=== PATIENT | female | born 1965 | race Caucasian/White ===

== ENCOUNTER 2016-08-18 20:43 | Inpatient (IN) | payer MEDICAID ==
[~2016-08-18] VITALS: Ht 160 cm; Wt 81.2 kg
[2016-08-18] MEDS ORDERED: DUONEB INH ONE (20:58)
[2016-08-18] MEDS ORDERED: METHYLPRED SOD SUCC 125 MG/2 ML VIAL ONE (21:16)
[2016-08-19] VITALS (7 sets, daily range): BP systolic 123–152; RESP 18–22; TEMP 97.5–98.6; Ht 160 cm; Wt 81.2 kg
[2016-08-19] MEDS: AMITRIPTYLINE 25 MG TAB PO SCH ×2 (00:45→21:16)
[2016-08-19] MEDS: SERTRALINE 100 MG TAB PO SCH ×2 (00:45→21:16)
[2016-08-19] MEDS ORDERED: NEB-ALBUTEROL 2.5 MG/3 ML INH PRN ×2 (00:45→08:45)
[2016-08-19] MEDS ORDERED: SALINE FLUSH 10 ML FLUSH PRN (00:45)
[2016-08-19] MEDS: FAMOTIDINE 20 MG TAB PO SCH ×3 (00:45→21:15)
[2016-08-19] MEDS: SODIUM CHLORIDE 0.9% 1,000 ML IV SCH ×3 (05:54→21:17)
[2016-08-19] MEDS: SODIUM CHLORIDE 0.9% FLUSH BAG 500 ML IV SCH (05:55)
[2016-08-19] MEDS ORDERED: DUONEB INH SCH (07:00)
[2016-08-19] MEDS ORDERED: *PINK BRACELET XX ONE (07:15)
[2016-08-19] MEDS: DUONEB INH SCH ×5 (07:55→22:59)
[2016-08-19] MEDS ORDERED: METHYLPRED SOD SUCC 40 MG VIAL IV SCH (08:00)
[2016-08-19] MEDS: *HOME MEDS KEPT IN PHARMACY XX SCH ×2 (08:00→20:00)
[2016-08-19] MEDS: LEVOFLOXACIN 750 MG/150 ML 150 ML IV SCH (08:25)
[2016-08-19] MEDS: SALINE FLUSH 10 ML FLUSH SCH ×2 (08:28→20:00)
[2016-08-19] MEDS: BUPROPION SR 150 MG TAB PO SCH ×2 (08:29→21:16)
[2016-08-19] MEDS: LEVETIRACETAM 500 MG TAB PO SCH ×2 (08:29→21:16)
[2016-08-19] MEDS: DICLOFENAC 25 MG TAB PO SCH ×3 (08:29→21:16)
[2016-08-19] MEDS: ENOXAPARIN 40 MG/0.4 ML SYR SUBQ SCH (08:30)
[2016-08-19] MEDS: BUSPIRONE HCL 10 MG TAB PO SCH ×3 (08:32→21:16)
[2016-08-19] MEDS ORDERED: MISSING DOSE XX ONE (08:40)
[2016-08-19] MEDS ORDERED: DOCUSATE SOD 100 MG CAP PO PRN (08:50)
[2016-08-19] MEDS: POLYETHYLENE GLYCOL 17 GM PACKET PO SCH (09:57)
[2016-08-19] MEDS: METHYLPRED SOD SUCC 125 MG/2 ML VIAL IV SCH ×2 (09:58→17:13)
[2016-08-19] MEDS: PANTOPRAZOLE 40 MG TAB PO SCH (09:58)
[2016-08-19] MEDS: GUAIFENESIN ER 600 MG TABCR PO SCH ×2 (09:58→21:15)
[2016-08-19] MEDS: BENZONATATE 100 MG CAP PO SCH ×3 (09:58→21:16)
[2016-08-19] MEDS ORDERED: ACETAMINOPHEN 325 MG TAB PO PRN (13:05)
[2016-08-19] MEDS ORDERED: NICOTINE 14 MG/24 HR TDSY TRANSDERM PRN (16:25)
[2016-08-19] MEDS: NEB-BROVANA 15 MCG/2 ML INH SCH (18:35)
[2016-08-19] MEDS: NEB-BUDESONIDE 0.5 MG INH SCH (18:35)
[2016-08-19] MEDS: QUETIAPINE XR 200 MG TAB PO SCH (23:59)
[2016-08-20] VITALS (19 sets, daily range): BP systolic 105–189; RESP 18–36; TEMP 97.1–98.6
[2016-08-20] MEDS: SODIUM CHLORIDE 0.9% FLUSH BAG 500 ML IV SCH (04:55)
[2016-08-20] MEDS: PANTOPRAZOLE 40 MG TAB PO SCH (04:55)
[2016-08-20] MEDS: NEB-BROVANA 15 MCG/2 ML INH SCH ×2 (05:08→19:12)
[2016-08-20] MEDS: NEB-BUDESONIDE 0.5 MG INH SCH ×2 (05:08→19:12)
[2016-08-20] MEDS: DUONEB INH SCH ×5 (05:08→23:49)
[2016-08-20] MEDS: SODIUM CHLORIDE 0.9% 1,000 ML IV SCH (05:41)
[2016-08-20] MEDS: *HOME MEDS KEPT IN PHARMACY XX SCH ×2 (08:00→21:26)
[2016-08-20] MEDS: SALINE FLUSH 10 ML FLUSH SCH ×2 (08:00→21:26)
[2016-08-20] MEDS: ENOXAPARIN 40 MG/0.4 ML SYR SUBQ SCH (08:38)
[2016-08-20] MEDS: METHYLPRED SOD SUCC 125 MG/2 ML VIAL IV SCH ×3 (08:38→16:10)
[2016-08-20] MEDS: FAMOTIDINE 20 MG TAB PO SCH ×2 (08:39→21:35)
[2016-08-20] MEDS: POLYETHYLENE GLYCOL 17 GM PACKET PO SCH (08:39)
[2016-08-20] MEDS: LEVETIRACETAM 500 MG TAB PO SCH ×2 (08:39→21:35)
[2016-08-20] MEDS: DICLOFENAC 25 MG TAB PO SCH ×3 (08:39→21:33)
[2016-08-20] MEDS: BENZONATATE 100 MG CAP PO SCH ×3 (08:39→21:33)
[2016-08-20] MEDS: GUAIFENESIN ER 600 MG TABCR PO SCH ×2 (08:39→21:35)
[2016-08-20] MEDS: BUSPIRONE HCL 10 MG TAB PO SCH ×3 (08:39→21:36)
[2016-08-20] MEDS: BUPROPION SR 150 MG TAB PO SCH ×2 (08:40→21:32)
[2016-08-20] MEDS ORDERED: MISSING DOSE XX ONE (08:50)
[2016-08-20] MEDS: LEVOFLOXACIN 750 MG/150 ML 150 ML IV SCH (09:34)
[2016-08-20] MEDS ORDERED: KETAMINE INJ 50 MG/ML VIAL IV ONE (10:15)
[2016-08-20] MEDS ORDERED: PROPOFOL 50ML VIAL IV ONE (10:15)
[2016-08-20] MEDS ORDERED: ESMOLOL 100 MG/10 ML VL IV ONE (10:15)
[2016-08-20] MEDS ORDERED: SODIUM CHLORIDE 0.9% 1,000 ML IV SCH (11:20)
[2016-08-20] MEDS ORDERED: NEB-ALBUTEROL 2.5 MG/3 ML INH ONE (13:45)
[2016-08-20] MEDS: QUETIAPINE XR 200 MG TAB PO SCH (21:33)
[2016-08-20] MEDS: SERTRALINE 100 MG TAB PO SCH (21:35)
[2016-08-20] MEDS: AMITRIPTYLINE 25 MG TAB PO SCH (21:35)
[2016-08-21] VITALS (7 sets, daily range): BP systolic 118–164; RESP 16–20; TEMP 97.4–97.9
[2016-08-21] MEDS: METHYLPRED SOD SUCC 125 MG/2 ML VIAL IV SCH ×4 (01:53→23:33)
[2016-08-21] MEDS: SODIUM CHLORIDE 0.9% FLUSH BAG 500 ML IV SCH (03:50)
[2016-08-21] MEDS: PANTOPRAZOLE 40 MG TAB PO SCH (06:13)
[2016-08-21] MEDS: DUONEB INH SCH ×5 (07:11→22:19)
[2016-08-21] MEDS: NEB-BROVANA 15 MCG/2 ML INH SCH ×2 (07:11→18:07)
[2016-08-21] MEDS: NEB-BUDESONIDE 0.5 MG INH SCH ×2 (07:11→18:07)
[2016-08-21] MEDS: SALINE FLUSH 10 ML FLUSH SCH ×2 (09:22→20:55)
[2016-08-21] MEDS ORDERED: MISSING DOSE XX ONE ×2 (09:30→21:10)
[2016-08-21] MEDS: *HOME MEDS KEPT IN PHARMACY XX SCH ×2 (09:32→20:49)
[2016-08-21] MEDS: LEVOFLOXACIN 750 MG/150 ML 150 ML IV SCH (09:36)
[2016-08-21] MEDS: ENOXAPARIN 40 MG/0.4 ML SYR SUBQ SCH (09:36)
[2016-08-21] MEDS: BENZONATATE 100 MG CAP PO SCH ×3 (09:37→21:00)
[2016-08-21] MEDS: BUPROPION SR 150 MG TAB PO SCH ×2 (09:37→20:57)
[2016-08-21] MEDS: BUSPIRONE HCL 10 MG TAB PO SCH ×3 (09:37→20:56)
[2016-08-21] MEDS: FAMOTIDINE 20 MG TAB PO SCH ×2 (09:37→20:56)
[2016-08-21] MEDS: LEVETIRACETAM 500 MG TAB PO SCH ×2 (09:37→20:56)
[2016-08-21] MEDS: DICLOFENAC 25 MG TAB PO SCH ×3 (09:37→20:57)
[2016-08-21] MEDS: GUAIFENESIN ER 600 MG TABCR PO SCH ×2 (09:37→20:57)
[2016-08-21] MEDS: DOCUSATE SOD 100 MG CAP PO SCH ×2 (10:42→20:56)
[2016-08-21] MEDS: POLYETHYLENE GLYCOL 17 GM PACKET PO SCH ×2 (10:54→20:57)
[2016-08-21] MEDS: QUETIAPINE XR 200 MG TAB PO SCH (20:56)
[2016-08-21] MEDS: AMITRIPTYLINE 25 MG TAB PO SCH (20:56)
[2016-08-21] MEDS: SERTRALINE 100 MG TAB PO SCH (20:56)
[2016-08-21] MEDS: TUSSIONEX SUSP UDC PO PRN (21:30)
[2016-08-22 05:00] VITALS: BP_SYST 147; RESP 18; TEMP 97.5
[2016-08-22] MEDS: SODIUM CHLORIDE 0.9% FLUSH BAG 500 ML IV SCH (06:00)
[2016-08-22] MEDS: PANTOPRAZOLE 40 MG TAB PO SCH (06:03)
[2016-08-22] MEDS: NEB-BROVANA 15 MCG/2 ML INH SCH ×2 (06:25→17:19)
[2016-08-22] MEDS: DUONEB INH SCH ×5 (06:26→23:24)
[2016-08-22] MEDS: NEB-BUDESONIDE 0.5 MG INH SCH ×2 (06:26→17:19)
[2016-08-22] MEDS: *HOME MEDS KEPT IN PHARMACY XX SCH ×2 (08:00→20:07)
[2016-08-22 08:02] VITALS: BP_SYST 151; RESP 22; TEMP 97.6
[2016-08-22] MEDS ORDERED: BISACODYL 10 MG SUPP RECTAL ONE ×2 (08:35→15:06)
[2016-08-22] MEDS ORDERED: ERGOCALCIFEROL 50,000 UNITS (1.25 MG) CAP PO SCH (09:00)
[2016-08-22] MEDS: POLYETHYLENE GLYCOL 17 GM PACKET PO SCH ×2 (09:00→20:54)
[2016-08-22] MEDS: SALINE FLUSH 10 ML FLUSH SCH ×2 (09:01→20:48)
[2016-08-22] MEDS: LEVOFLOXACIN 750 MG/150 ML 150 ML IV SCH (09:01)
[2016-08-22] MEDS: LEVETIRACETAM 500 MG TAB PO SCH ×2 (09:02→20:49)
[2016-08-22] MEDS: DICLOFENAC 25 MG TAB PO SCH ×3 (09:02→20:49)
[2016-08-22] MEDS: BENZONATATE 100 MG CAP PO SCH ×3 (09:02→20:55)
[2016-08-22] MEDS: ENOXAPARIN 40 MG/0.4 ML SYR SUBQ SCH (09:02)
[2016-08-22] MEDS: BUPROPION SR 150 MG TAB PO SCH ×2 (09:02→20:49)
[2016-08-22] MEDS: FAMOTIDINE 20 MG TAB PO SCH ×2 (09:03→20:49)
[2016-08-22] MEDS: DOCUSATE SOD 100 MG CAP PO SCH ×2 (09:03→20:48)
[2016-08-22] MEDS: BUSPIRONE HCL 10 MG TAB PO SCH ×3 (09:03→20:48)
[2016-08-22] MEDS: GUAIFENESIN ER 600 MG TABCR PO SCH ×2 (09:03→20:49)
[2016-08-22] MEDS: METHYLPRED SOD SUCC 125 MG/2 ML VIAL IV SCH ×2 (09:04→15:52)
[2016-08-22] MEDS: TUSSIONEX SUSP UDC PO PRN (10:36)
[2016-08-22] MEDS ORDERED: FLUCONAZOLE 150 MG TAB PO ONE (11:50)
[2016-08-22 12:27] VITALS: BP_SYST 147; RESP 22; TEMP 98
[2016-08-22] MEDS ORDERED: MISSING DOSE XX ONE (12:35)
[2016-08-22] MEDS: COD PO PRN ×2 (15:52→22:37)
[2016-08-22] MEDS: GUAIFEN PO PRN ×2 (15:52→22:37)
[2016-08-22] MEDS: AMITRIPTYLINE 25 MG TAB PO SCH (20:49)
[2016-08-22] MEDS: QUETIAPINE XR 200 MG TAB PO SCH (20:50)
[2016-08-22] MEDS: SERTRALINE 100 MG TAB PO SCH (20:50)
[2016-08-22 20:59] VITALS: BP_SYST 152; RESP 20; TEMP 97.4
[2016-08-23] VITALS (7 sets, daily range): BP systolic 138–156; RESP 16–22; TEMP 97.1–98.3
[2016-08-23] MEDS: METHYLPRED SOD SUCC 125 MG/2 ML VIAL IV SCH ×2 (00:23→07:35)
[2016-08-23] MEDS: PANTOPRAZOLE 40 MG TAB PO SCH (05:54)
[2016-08-23] MEDS: SODIUM CHLORIDE 0.9% FLUSH BAG 500 ML IV SCH (06:00)
[2016-08-23] MEDS: GUAIFEN PO PRN ×2 (07:34→20:25)
[2016-08-23] MEDS: COD PO PRN ×2 (07:34→20:25)
[2016-08-23] MEDS: SALINE FLUSH 10 ML FLUSH SCH ×2 (07:36→19:20)
[2016-08-23] MEDS: *HOME MEDS KEPT IN PHARMACY XX SCH ×2 (07:37→20:00)
[2016-08-23] MEDS: NEB-BROVANA 15 MCG/2 ML INH SCH ×2 (08:05→17:39)
[2016-08-23] MEDS: NEB-BUDESONIDE 0.5 MG INH SCH ×2 (08:05→17:39)
[2016-08-23] MEDS: DUONEB INH SCH ×5 (08:05→22:16)
[2016-08-23] MEDS: FAMOTIDINE 20 MG TAB PO SCH ×2 (08:46→20:22)
[2016-08-23] MEDS: BENZONATATE 100 MG CAP PO SCH ×3 (08:46→20:25)
[2016-08-23] MEDS: LEVETIRACETAM 500 MG TAB PO SCH ×2 (08:46→20:20)
[2016-08-23] MEDS: BUSPIRONE HCL 10 MG TAB PO SCH ×3 (08:46→20:20)
[2016-08-23] MEDS: BUPROPION SR 150 MG TAB PO SCH ×2 (08:46→20:22)
[2016-08-23] MEDS: DOCUSATE SOD 100 MG CAP PO SCH ×2 (08:46→20:20)
[2016-08-23] MEDS: DICLOFENAC 25 MG TAB PO SCH ×3 (08:47→20:22)
[2016-08-23] MEDS: GUAIFENESIN ER 600 MG TABCR PO SCH ×2 (08:47→20:21)
[2016-08-23] MEDS: ENOXAPARIN 40 MG/0.4 ML SYR SUBQ SCH (08:48)
[2016-08-23] MEDS: LEVOFLOXACIN 750 MG/150 ML 150 ML IV SCH (08:51)
[2016-08-23] MEDS: POLYETHYLENE GLYCOL 17 GM PACKET PO SCH ×2 (09:00→20:25)
[2016-08-23] MEDS: FLUCONAZOLE 100 MG TAB PO SCH (12:00)
[2016-08-23] MEDS: METHYLPRED SOD SUCC 40 MG VIAL IV SCH ×2 (15:40→23:29)
[2016-08-23] MEDS: NEB-NACL 3% 4 ML NEBU INH SCH ×2 (17:39→22:16)
[2016-08-23] MEDS: AMITRIPTYLINE 25 MG TAB PO SCH (20:20)
[2016-08-23] MEDS: QUETIAPINE XR 200 MG TAB PO SCH (20:22)
[2016-08-23] MEDS: SERTRALINE 100 MG TAB PO SCH (20:23)
[2016-08-24 03:50] VITALS: BP_SYST 145; RESP 16; TEMP 97.9
[2016-08-24] MEDS: NEB-BROVANA 15 MCG/2 ML INH SCH ×2 (05:02→19:14)
[2016-08-24] MEDS: DUONEB INH SCH ×5 (05:03→23:44)
[2016-08-24] MEDS: NEB-NACL 3% 4 ML NEBU INH SCH ×4 (05:03→23:45)
[2016-08-24] MEDS: NEB-BUDESONIDE 0.5 MG INH SCH ×2 (05:03→19:14)
[2016-08-24] MEDS: SODIUM CHLORIDE 0.9% FLUSH BAG 500 ML IV SCH (05:59)
[2016-08-24] MEDS: PANTOPRAZOLE 40 MG TAB PO SCH ×2 (06:01→18:27)
[2016-08-24] MEDS: *HOME MEDS KEPT IN PHARMACY XX SCH ×2 (08:00→20:00)
[2016-08-24] MEDS: LEVOFLOXACIN 750 MG TAB PO SCH (08:11)
[2016-08-24] MEDS: METHYLPRED SOD SUCC 40 MG VIAL IV SCH (08:12)
[2016-08-24] MEDS: DICLOFENAC 25 MG TAB PO SCH ×2 (08:12→17:39)
[2016-08-24] MEDS: BUPROPION SR 150 MG TAB PO SCH ×2 (08:12→22:01)
[2016-08-24] MEDS: FAMOTIDINE 20 MG TAB PO SCH (08:12)
[2016-08-24] MEDS: LEVETIRACETAM 500 MG TAB PO SCH ×2 (08:12→22:01)
[2016-08-24] MEDS: GUAIFENESIN ER 600 MG TABCR PO SCH ×2 (08:12→22:01)
[2016-08-24] MEDS: BUSPIRONE HCL 10 MG TAB PO SCH ×3 (08:12→22:01)
[2016-08-24] MEDS: FLUCONAZOLE 100 MG TAB PO SCH (08:12)
[2016-08-24] MEDS: BENZONATATE 100 MG CAP PO SCH ×3 (08:12→22:00)
[2016-08-24] MEDS: DOCUSATE SOD 100 MG CAP PO SCH ×2 (08:12→22:01)
[2016-08-24] MEDS: POLYETHYLENE GLYCOL 17 GM PACKET PO SCH ×2 (08:13→22:02)
[2016-08-24] MEDS: ENOXAPARIN 40 MG/0.4 ML SYR SUBQ SCH (08:13)
[2016-08-24] MEDS: SALINE FLUSH 10 ML FLUSH SCH ×2 (08:13→22:00)
[2016-08-24 08:22] VITALS: BP_SYST 138; RESP 20; TEMP 98.1
[2016-08-24] MEDS: GUAIFEN PO PRN (12:54)
[2016-08-24] MEDS: COD PO PRN (12:54)
[2016-08-24] MEDS: SUCRALFATE 1GM/10ML SUSP PO SCH (18:27)
[2016-08-24 18:54] VITALS: BP_SYST 142
[2016-08-24 19:00] VITALS: BP_SYST 151
[2016-08-24 19:05] VITALS: BP_SYST 135
[2016-08-24 19:07] VITALS: TEMP 98.3
[2016-08-24] MEDS: SERTRALINE 100 MG TAB PO SCH (22:01)
[2016-08-24] MEDS: QUETIAPINE XR 200 MG TAB PO SCH (22:01)
[2016-08-24] MEDS: AMITRIPTYLINE 25 MG TAB PO SCH (22:02)
[2016-08-25] VITALS (7 sets, daily range): BP systolic 124–137; RESP 16–20; TEMP 97.6–98.2
[2016-08-25] MEDS: SODIUM CHLORIDE 0.9% FLUSH BAG 500 ML IV SCH (05:51)
[2016-08-25] MEDS: PANTOPRAZOLE 40 MG TAB PO SCH (05:57)
[2016-08-25] MEDS: NEB-BUDESONIDE 0.5 MG INH SCH (06:26)
[2016-08-25] MEDS: NEB-BROVANA 15 MCG/2 ML INH SCH (06:26)
[2016-08-25] MEDS: DUONEB INH SCH ×3 (06:26→15:27)
[2016-08-25] MEDS: NEB-NACL 3% 4 ML NEBU INH SCH ×2 (06:26→12:05)
[2016-08-25] MEDS: SUCRALFATE 1GM/10ML SUSP PO SCH (06:42)
[2016-08-25] MEDS: *HOME MEDS KEPT IN PHARMACY XX SCH (08:00)
[2016-08-25] MEDS: LEVETIRACETAM 500 MG TAB PO SCH (08:12)
[2016-08-25] MEDS: LEVOFLOXACIN 750 MG TAB PO SCH (08:12)
[2016-08-25] MEDS: DOCUSATE SOD 100 MG CAP PO SCH (08:12)
[2016-08-25] MEDS: FLUCONAZOLE 100 MG TAB PO SCH (08:12)
[2016-08-25] MEDS: BUSPIRONE HCL 10 MG TAB PO SCH (08:12)
[2016-08-25] MEDS: BENZONATATE 100 MG CAP PO SCH (08:13)
[2016-08-25] MEDS: BUPROPION SR 150 MG TAB PO SCH (08:13)
[2016-08-25] MEDS: SALINE FLUSH 10 ML FLUSH SCH (08:13)
[2016-08-25] MEDS: GUAIFENESIN ER 600 MG TABCR PO SCH (08:13)
[2016-08-25] MEDS: POLYETHYLENE GLYCOL 17 GM PACKET PO SCH (08:13)
[2016-08-25] MEDS: ENOXAPARIN 40 MG/0.4 ML SYR SUBQ SCH (08:14)
[2016-08-25] MEDS ORDERED: PREDNISONE 50 MG TAB PO SCH (09:00)
[2016-08-25] MEDS: GUAIFEN PO PRN (11:18)
[2016-08-25] MEDS: COD PO PRN (11:18)
== END 2016-08-25 17:49 | disposition home or self-care (01) | DRG 190 ==
LOC: ENRESERVTM → ENRESERVDT → ER 20:43 → ENPENDDIS 08-19 00:41 → EMR 08-19 00:41 → 3S 08-19 01:13
PROVIDERS: ADMIT Internal Medicine; ATTEND Internal Medicine
PROC: 0BB18ZX Excision of Trachea, Via Natural or Artificial Opening Endoscopic, Diagnostic (ICD-10-PCS; 2016-08-20)
PROC: 0BB38ZX Excision of Right Main Bronchus, Via Natural or Artificial Opening Endoscopic, Diagnostic (ICD-10-PCS; 2016-08-20)
PROC: 0BB78ZX Excision of Left Main Bronchus, Via Natural or Artificial Opening Endoscopic, Diagnostic (ICD-10-PCS; 2016-08-20)
PROC: 0B968ZX Drainage of Right Lower Lobe Bronchus, Via Natural or Artificial Opening Endoscopic, Diagnostic (ICD-10-PCS; principal; 2016-08-20 10:35)
DX: J44.1 Chronic obstructive pulmonary disease with (acute) exacerbation (principal); J96.21 Acute and chronic respiratory failure with hypoxia; N17.9 Acute kidney failure, unspecified; R56.9 Unspecified convulsions; K21.9 Gastro-esophageal reflux disease without esophagitis; F41.9 Anxiety disorder, unspecified; F32.9 Major depressive disorder, single episode, unspecified; F90.9 Attention-deficit hyperactivity disorder, unspecified type; M19.90 Unspecified osteoarthritis, unspecified site; K59.00 Constipation, unspecified; Z99.81 Dependence on supplemental oxygen
CPT/HCPCS: 36415; 36600; 71010; 71020; 71250; 80048; 80053; 82553; 82785; 82803; 82947; 83880; 84484; 85025; 86003; 87071; 87102; 87116; 87205; 87206; 87496; 87529; 87798; 88108; 89051; 93005; 94640; 94799; 96374; 99223; 99232; 99233

== ENCOUNTER 2016-09-08 08:46 | Emergency (ER) | payer MEDICAID ==
[2016-09-08] MEDS ORDERED: DOXYCYCLINE 100 MG TAB PO ONE (11:05)
== END 2016-09-08 11:31 | disposition home or self-care (01) ==
LOC: ER 08:46
DX: J15.9 Unspecified bacterial pneumonia (principal); F17.200 Nicotine dependence, unspecified, uncomplicated
CPT/HCPCS: 36415; 71020; 84484; 93005